=== PATIENT | female | born 1945 | race Caucasian/White ===

== ENCOUNTER 2017-09-17 14:12 | Emergency (ER) | payer MEDICARE ==
[~2017-09-17] VITALS: Ht 162.6 cm; Wt 95.0 kg
[~2017-09-17 14:12] MED LIST: ATOR20TA42 PO; ATRO17AE INH; CHEL50TA PO; FLUTICASONE NASAL; LEVO137T2 PO; LISI-360 PO; MONT10 PO; OXYC1SOL5 PO; SULF500T9 PO; TAB-TAB PO; ventolin inhaler INH
[2017-09-17 14:14] VITALS: BP 145/68; PULSE 88; RESP 18; TEMP 97.9; O2SAT 99
[2017-09-17] MEDS ORDERED: MONT10TA4 PO (14:58)
[2017-09-17] MEDS ORDERED: LISI10TA3 PO (14:58)
[2017-09-17] MEDS ORDERED: LEVO137T2 PO (14:58)
[2017-09-17] MEDS ORDERED: SULF500T PO (14:58)
[2017-09-17] MEDS ORDERED: MULTTAB67 PO (14:58)
[2017-09-17] MEDS ORDERED: IPRA17I INH (14:58)
[2017-09-17] MEDS ORDERED: ATOR20TA15 PO (14:58)
[2017-09-17] MEDS ORDERED: ZINC50TA2 PO (14:59)
[2017-09-17] MEDS ORDERED: oxyCODONE/ACETAMINOPHEN 5 MG/325 MG TAB PO ONE (15:00)
[2017-09-17] MEDS ORDERED: DEXAMETHASONE SOD PHOS 20 MG/5 ML VIAL IM ONE (15:00)
[2017-09-17] MEDS ORDERED: DIAZEPAM 5 MG TAB PO ONE (15:00)
[2017-09-17] MEDS ORDERED: PERC5TAB12 PO (15:03)
--- NOTE | 2017-09-17 15:03 | PD ---
HPI Chief Complaint: Back/ Neck Pain or Injury Time Seen by Provider: 14:41 Travel History International Travel<30 days: No Contact w/Intl Traveler<30days: No Traveled to known affect area: No History of Present Illness HPI Patient is a 72-year-old female who presents to emergency room with complaints of low back pain. Patient reports that she was bending over to water the [employer] tree yesterday and as she was doing this, had left-sided low back pain which radiated down her left leg. Patient reports that she has never had her low back in the past. Patient reports that she continued to have increased low back pain into this morning. Reports that every time she moves, she has radiating pain down her left leg. Patient denies any incontinence of urine or stool, denies any abdominal pain, nausea or vomiting. Patient is concerned for possible herniated disc or pinched nerve. Patient denies any saddle anesthesia at this time. 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) Neurologic: No Psychiatric: No Reproductive: No Respiratory: Yes Immunizations Current: Yes Migraines: No Renal Failure: No Seizures: No Sleep Apnea: No Thyroid Disease: Yes (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) Ulcer: No Tetanus Vaccination: < 5 Years Influenza Vaccination: No ?: Not : 4 Para: 4 Past Surgical History Abdominal Surgery: Yes (appendectomy) AICD: No Appendectomy: Yes Cardiac Surgery: No Ear Surgery: No Endocrine Surgery: No Eye Surgery: Yes (right eye cataract removal) Genitourinary Surgery: No Gynecologic Surgery: Yes (hysterectomy; ruptured ovary repair) Hysterectomy: Yes Joint Replacement: Yes (right total hip) Oral Surgery: Yes (sinuplasty) Pacemaker: No Thoracic Surgery: No Other Surgery: Yes Social History Alcohol Use: Yes (occassional) Tobacco Use: No (QUIT) Substance Use: No Allergies-Medications (Allergen,Severity, Reaction): Coded Allergies: animal dander (Unverified Allergy, Severe, sneezes, 09/17/17) lovastatin (Unverified Allergy, Mild, HEADACHE, RASH, YEAST INF, 09/17/17) aspirin (Unverified Adverse Reaction, Mild, N & V, 09/17/17) Reported Meds & Prescriptions Reported Meds & Active Scripts Active Percocet (Oxycodone-Acetaminophen) 5-325 mg Tab 1 Tab PO Q6H PRN Reported Clonidine (Clonidine HCl) 0.1 Mg Tab 0.1 Mg PO BID Zinc Gluconate 50 Mg Tab 50 Mg PO DAILY Sulfadiazine 500 Mg Tab 1,000 Mg PO BID Multiple Vitamin 1 Tab 1 Tab PO DAILY Montelukast (Montelukast Sodium) 10 Mg Tab 10 Mg PO DAILY Lisinopril 10 Mg Tab 10 Mg PO BID Levothyroxine (Levothyroxine Sodium) 137 Mcg Tab 137 Mcg PO DAILY Atrovent HFA 12.9 GM Inh (Ipratropium [place]) 17 Mcg/Actuation Aer 2 Puff INH Q6HR PRN Atorvastatin (Atorvastatin Calcium) 20 Mg Tab 20 Mg PO HS [ventolin inhaler] 90 Mcg INH DIRECTED PRN [Fluticasone spray] 50 Mcg NASAL DAILY Review of Systems General / Constitutional: No: Fever Eyes: No: Visual changes HENT: No: Headaches Cardiovascular: No: Chest Pain or Discomfort Respiratory: No: Shortness of Breath Gastrointestinal: No: Abdominal Pain Genitourinary: No: Dysuria Musculoskeletal: Positive: Limited ROM, Pain (left sided low back pain) Skin: No Rash Neurologic: No: Weakness Psychiatric: No: Depression Endocrine: No: Polydipsia Hematologic/Lymphatic: No: Easy Bruising Physical Exam Narrative GENERAL: Well-nourished, well-developed patient. SKIN: Focused skin assessment warm/dry. HEAD: Normocephalic. EYES: No scleral icterus. No injection or drainage. NECK: Supple, trachea midline. No JVD or lymphadenopathy. CARDIOVASCULAR: Regular rate and rhythm without murmurs, gallops, or rubs. RESPIRATORY: Breath sounds equal bilaterally. No accessory muscle use. GASTROINTESTINAL: Abdomen soft, non-tender, nondistended. MUSCULOSKELETAL: No cyanosis, or edema. Patient with point tenderness to her left lumbar paraspinal area, patient also with pain with left leg straight leg raises to 30 degrees, patient with no saddle anesthesia, no midline thoracic or lumbar tenderness BACK: Nontender without obvious deformity. No CVA tenderness. Data Data Last Documented VS Vital Signs Date Time Temp Pulse Resp B/P (MAP) Pulse Ox O2 Delivery O2 Flow Rate FiO2 09/17/17 14:14 97.9 88 18 145/68 (93) [address] Lumb Spine W/O Contrast (09/17/17 ) Dexamethasone Inj (Decadron Inj) (09/17/17 15:00) Diazepam (Valium) (09/17/17 15:00) Oxycodone-Acetamin 5-325 Mg (Percocet (09/17/17 15:00) MDM Medical Decision Making Medical Screen Exam Complete: Yes Emergency Medical Condition: Yes Medical Record Reviewed: Yes Interpretation(s) Vital Signs Date Time Temp Pulse Resp B/P (MAP) Pulse Ox O2 Delivery O2 Flow Rate FiO2 09/17/17 14:14 97.9 88 18 145/68 (93) 99 Differential Diagnosis lumbar radiculopathy, herniated disc, muscle strain Narrative Course During the course of the patients emergency department visit, the patients history, examination, and differential diagnosis were reviewed with the patient. The patient was placed on a night monitor with oximetry and frequent blood pressure monitoring. Patient with acute onset low back pain with radiculopathy down left lower extremity. Patient with no signs of cauda equina at this time. The patient was initially provided dexamethasone IM, Valium by mouth, Percocet by mouth Radiology studies were reviewed and remarkable for: Last Impressions Lumbar Spine CT 09/17/17 0000 Signed Impressions: Service Date/Time: Sunday, September 17, 2017 15:25 - CONCLUSION: 1. Right lateral disc protrusion at L4-5. 2. Disc bulging at L2-3, L3-4, and L5-S1. Durga Armstrong MD A copy patient's CT report was given to her discharge. I did review ALL findings with her. Patient follow up with her primary care doctor as well as orthopedic surgery, she will return to emergency room as needed. Diagnosis Primary Impression: Low back pain Qualified Codes: M54.42 - Lumbago with sciatica, left side Additional Impressions: Sciatica Qualified Codes: M54.32 - Sciatica, left side Bulging lumbar disc Protrusion of intervertebral disc of lumbosacral region Referrals: Brittni Arteaga MD Patient Instructions: General Instructions, Narcotic given in the ED Additional Instructions: Please provide patient with a copy of her studies at discharge Please follow up with your primary care doctor in 2-3 days Return to the ER if symptoms worsen or progress Return to the ER as needed Please do not drive or operate heavy machinery taking narcotic pain medications. Please follow-up with orthopedic surgery as needed Med/Other Pt SpecificInfo: Prescription(s) given Scripts Methylprednisolone Dosepak (Medrol Dosepak) 4 Mg Dspk 4 MG PO DIRECTED, #1 DSPK 0 Refills Per Pharmacist direction Prov: Ly Terry DO 09/17/17 Oxycodone-Acetaminophen (Percocet) 5-325 mg Tab 1 TAB PO Q6H Y for PAIN, #12 TAB 0 Refills Prov: Ly Terry DO 09/17/17 Disposition: 01 DISCHARGE HOME Condition: Stable Ly Terry DO Sep 17, 2017 15:03
[2017-09-17] MEDS ORDERED: CLON0.1T PO (15:21)
--- NOTE | 2017-09-17 16:01 | RADRPT ---
EXAM DATE/TIME: 09/17/2017 15:25 [facility] COMPARISON: No previous studies available for comparison. INDICATIONS : Left lower back pain that radiates down left leg. RADIATION DOSE: 35.86 CTDIvol (mGy) MEDICAL HISTORY : Hypertension. Gastroesophageal reflux disease. SURGICAL HISTORY : Hysterectomy. Appendectomy. ENCOUNTER: Initial ACUITY: 1 day PAIN SCALE: 8/10 LOCATION: Left lower back. TECHNIQUE: Volumetric scanning of the lumbar spine was performed. Multiplanar reconstructions in the sagittal, coronal and oblique axial planes were performed. Using automated exposure control and adjustment of the mA and/or kV according to patient size, radiation dose was kept as low as reasonably achievable t o obtain optimal diagnostic quality images. DICOM format image data is available electronically for review and comparison. FINDINGS: VERTEBRAE: Normal vertebral body height. Mild facet joint hypertrophy from L3-S1 including vacuum phenomenon on the right side at L3-4 and bilaterally at L4-5. ALIGNMENT: No evidence of subluxation. T12-L1: The thecal sac has a normal diameter. No evidence of disc bulge or protrusion. The neural foramina are patent bilaterally. L1-L2: The thecal sac has a normal diameter. No evidence of disc bulge or protrusion. The neural foramina are patent bilaterally. L2-L3: Mild broad-based bulging disc without significant flattening of the thecal sac. L3-L4: Broad-based bulging of the disc flattens the ventral intrathecal sac and there is extension into the neural foramen bilaterally with probable bilateral neural impingement. L4-L5: Right paracentral and lateral disc protrusion into the neural foramen superimposed upon broad-based b ulging of the disc towards the left. L5-S1: Broad-based bulging of the disc flattens the ventral thecal sac and extends into the neural foramina bilaterally. CONCLUSION: 1. Right lateral disc protrusion at L4-5. 2. Disc bulging at L2-3, L3-4, and L5-S1. Durga Armstrong MD on September 17, 2017 at 15:56 Board Certified Radiologist. This report was verified electronically.
[2017-09-17] MEDS ORDERED: MEDR4PAK PO (16:19)
[2017-09-17 17:02] VITALS: BP 191/85; PULSE 86; RESP 16; O2SAT 97
[2017-09-17 17:05] VITALS: BP 180/81
== END 2017-09-17 17:11 | disposition home or self-care (01) ==
LOC: NEPD 14:12
DX: M54.42 Lumbago with sciatica, left side (principal); M51.27 Other intervertebral disc displacement, lumbosacral region; J45.909 Unspecified asthma, uncomplicated; E78.00 Pure hypercholesterolemia, unspecified; K21.9 Gastro-esophageal reflux disease without esophagitis; I10 Essential (primary) hypertension; E03.9 Hypothyroidism, unspecified; Z79.899 Other long term (current) drug therapy
CPT/HCPCS: 72131; 96372; 99285; J1100